=== PATIENT | female | born 1995 | race Two or more races ===

== ENCOUNTER 2016-05-25 09:02 | Emergency (ER) | payer OTHER ==
[~2016-05-25] VITALS: Ht 152.4 cm; Wt 63.5 kg
[2016-05-25 09:40] LABS: Urine Bilirubin Negative (Negative); Urine Blood Negative /uL (Negative); Urine Color Yellow (Yellow); Urine Glucose Normal (Normal); Urine Ketone Negative (Negative); Urine Nitrite Negative (Negative); Urine RBC <1 /hpf (0 - 4); Urine Squamous Epithelial Cell FEW /hpf (<5); Urine Urobilinogen Normal (Negative)
[2016-05-25] MEDS ORDERED: SODIUM CHLORIDE 0.9% 1,000 ML IV ONE (09:44)
[2016-05-25 10:02] LABS: Basophils # (auto) 0 uL; Basophils % (auto) 0.6 % (0.0-2.0); Eosinophils # (auto) 0.2 uL; Eosinophils % (auto) 2.7 % (0.0-7.0); Hematocrit 41.6 % (36.0-46.0); Hemoglobin 13.9 g/dL (12.2-16.2); Lymphocytes # (auto) 2.7 uL; Lymphocytes % (auto) 37.3 % (10.0-50.0); Mean Corpuscular Hemoglobin 28.2 pg (28.0-32.0); Mean Corpuscular Hgb Conc. 33.4 g/dL (32.0-36.0); Mean Corpuscular Volume 84.4 fL (80.0-100.0); Mean Platelet Volume 10.3 fL (7.4-10.4); Monocytes # (auto) 0.3 uL; Monocytes % (auto) 4.4 % (0.0-12.0); Neutrophils # (auto) 3.9 uL; Platelet Count (auto) 202 10^3/uL (140-450); Red Cell Distribution Width 13.1 % (11.6-16.0); White Blood Cell 7.1 10^3/uL (4.4-10.8)
[2016-05-25 10:05] VITALS: BP 108/65
[2016-05-25 10:33] LABS: Albumin 4.3 g/dL (3.4-5.0); BUN/Creatinine Ratio 17.2; Bilirubin, Total 0.6 mg/dL (0.2-1.0); Calcium 9.1 mg/dL (8.5-10.1); Potassium 3.7 mmol/L (3.5-5.1); Total Protein 7.8 g/dL (6.4-8.2)
== END 2016-05-25 11:45 | disposition home or self-care (01) ==
LOC: ER 09:05
DX: K52.9 Noninfective gastroenteritis and colitis, unspecified (principal); K90.49 Malabsorption due to intolerance, not elsewhere classified
CPT/HCPCS: 36415; 80053; 81001; 81025; 83735; 84443; 85025; 96360; 99284; J7030

== ENCOUNTER 2018-08-23 07:33 | Emergency (ER) | payer BC, OTHER ==
[~2018-08-23] VITALS: Ht 154.9 cm; Wt 74.8 kg
[2018-08-23 08:22] LABS: Urine Bacteria NONE SEEN /hpf (None Seen); Urine Blood Negative /uL (Negative); Urine Mucus FEW (None Seen); Urine Specific Gravity 1.021 (1.001-1.035); Urine WBC 1 /hpf (0 - 5)
[2018-08-23] MEDS ORDERED: ONDANSETRON HCL 4 MG/2 ML VIAL IV ONE (08:45)
[2018-08-23] MEDS ORDERED: MORPHINE SULF INJ 2 MG/ML SYRINGE 1ML IV ONE (08:45)
[2018-08-23 09:15] LABS: Basophils # (auto) 0.1 uL; Basophils % (auto) 0.4 % (0.0-2.0); Eosinophils # (auto) 0.1 uL; Hematocrit 41.7 % (36.0-46.0); Hemoglobin 13.9 g/dL (12.2-16.2); Lymphocytes # (auto) 1.3 uL; Lymphocytes % (auto) 11.6 % (10.0-50.0); Mean Corpuscular Hemoglobin 28.6 pg (28.0-32.0); Mean Corpuscular Hgb Conc. 33.3 g/dL (32.0-36.0); Mean Corpuscular Volume 85.8 fL (80.0-100.0); Monocytes # (auto) 0.3 uL; Monocytes % (auto) 2.2 % (0.0-12.0); Neutrophils # (auto) 9.8 uL; Neutrophils % (auto) 84.8 % (37.0-80.0); Platelet Count (auto) 162 10^3/uL (140-450); Red Blood Cells 4.86 10^6/uL (4.0-5.20); Red Cell Distribution Width 13.2 % (11.8-14.3); White Blood Cell 11.6 10^3/uL (4.4-10.8)
[2018-08-23 09:43] LABS: Albumin 4.3 g/dL (3.4-5.0); BUN/Creatinine Ratio 19.4; Calcium 9.4 mg/dL (8.5-10.1); Potassium 3.4 mmol/L (3.5-5.1)
[2018-08-23 09:45] LABS: Bilirubin, Total 0.7 mg/dL (0.2-1.0)
[2018-08-23 10:14] VITALS: BP 131/74
== END 2018-08-23 11:20 | disposition home or self-care (01) ==
LOC: ER 07:33
DX: K29.70 Gastritis, unspecified, without bleeding (principal)
CPT/HCPCS: 36415; 74176; 80053; 81001; 81025; 83690; 85025; 96374; 96375; 99284; J2270; J2405; J7030